=== PATIENT | female | born 1995 | race Caucasian/White ===

== ENCOUNTER 2020-03-08 15:11 | Emergency (ER) | payer BC ==
[2020-03-08 15:54] VITALS: BP 128/64; PULSE 82
[2020-03-08] MEDS ORDERED: methylPREDNISolone Sodium Succinate 125 MG/2 ML SDV IM ONE (15:59)
[2020-03-08] MEDS ORDERED: EPINEPHrine 1 MG/ML SDV IM ONE (15:59)
[2020-03-08] MEDS ORDERED: Famotidine 20 MG Tab PO ONE (16:00)
--- NOTE | 2020-03-08 16:01 | EDM.PDOC ---
ED HPI GENERAL MEDICAL PROBLEM - General Chief Complaint: Allergic Reaction Stated Complaint: FLY BITE, ALLERGIC, TROUBLE BREATHING Time Seen by Provider: 03/08/20 15:55 Source of Information: Reports: Patient, Family, RN Notes Reviewed History Limitations: Reports: No Limitations - History of Present Illness INITIAL COMMENTS - FREE TEXT/NARRATIVE: 24-year-old female presents emergency department today with allergic reaction, she has a known allergy to black fly bites unfortunately she had gotten bit again today used her EpiPen 2 times which did improve the symptoms of the throat swelling unfortunately she has no symptoms coming back no shortness of breath no rash Right Leg Pain Score (Numeric/FACES): 1 - Related Data Allergies Allergy/AdvReac Type Severity Reaction Status Date / Time cefprozil [From Cefzil] Allergy Hives Verified 03/08/20 15:47 Penicillins Allergy Hives Verified 03/08/20 15:47 black flies Allergy Anaphylactic Uncoded 03/06/16 17:00 Shock Home Meds: Home Meds Sertraline HCl [Zoloft] 100 mg PO DAILY 03/06/16 [History] lamoTRIgine [Lamotrigine] 100 mg PO DAILY 03/06/16 [History] Cetirizine [ZyrTEC] 10 mg PO DAILY 03/08/20 [History] Past Medical History Respiratory History: Reports: Asthma, Other (See Below) Other Respiratory History: activity induced asthma as a teenager Neurological History: Reports: Concussion Psychiatric History: Reports: Anxiety, Depression, Mood Swings - Past Surgical History HEENT Surgical History: Reports: Other (See Below) Social & Family History - Tobacco Use Smoking Status *Q: Current Every Day Smoker Years of Tobacco use: 4 Packs/Tins Daily: 0 - Caffeine Use Caffeine Use: Reports: Soda - Alcohol Use Days Per Week of Alcohol Use: 5 Number of Drinks Per Day: 1 Total Drinks Per Week: 5 - Recreational Drug Use Recreational Drug Use: No ED ROS ALLERGIC REACTION - Review of Systems Review Of Systems: See Below Constitutional: Reports: No Symptoms HEENT: Reports: Throat Pain, Throat Swelling Respiratory: Reports: No Symptoms Cardiovascular: Reports: No Symptoms GI/Abdominal: Reports: No Symptoms Skin: Reports: No Symptoms ED EXAM GENERAL NO PERIP PULSE - Physical Exam Exam: See Below Exam Limited By: No Limitations General Appearance: Alert, WD/WN, No Apparent Distress Throat/Mouth: Normal Inspection, Normal Lips, Normal Teeth, Normal Gums, Normal Oropharynx, Normal Voice, No Airway Compromise Neck: Normal Inspection, Supple, Non-Tender, Full Range of Motion Respiratory/Chest: No Respiratory Distress, Lungs Clear, Normal Breath Sounds, No Accessory Muscle Use, Chest Non-Tender Cardiovascular: Regular Rate, Rhythm, No Murmur Course - Vital Signs Last Recorded V/S: Last Vital Signs Temp 100.5 F 03/08/20 15:54 Pulse 82 03/08/20 15:54 Resp 16 03/08/20 15:54 BP 128/64 03/08/20 15:54 Pulse Ox 98 03/08/20 15:54 - Orders/Labs/Meds Meds: Medications Discontinued Medications Generic Name Dose Route Start Last Admin Trade Name Davisq PRN Reason Stop Dose Admin Epinephrine HCl 0.5 mg 03/08/20 15:59 03/08/20 16:10 Adrenalin IM 03/08/20 16:00 0.5 mg ONETIME ONE Administration Famotidine 20 mg 03/08/20 16:00 03/08/20 16:10 Pepcid PO 03/08/20 16:01 20 mg ONETIME ONE Administration Methylprednisolone Sodium Succinate 125 mg 03/08/20 15:59 03/08/20 16:11 Solu-Medrol IM 03/08/20 16:00 125 mg ONETIME ONE Administration Departure - Departure Time of Disposition: 16:44 Disposition: Home, Self-Care 01 Condition: Fair Clinical Impression: Allergic reaction to insect sting Qualifiers: Encounter type: initial encounter Injury intent: accidental or unintentional Qualified Code(s): T63.481A - Toxic effect of venom of other arthropod, accidental (unintentional), initial encounter - Discharge Information Instructions: Allergies, Adult, [id number] Referrals: PCP,None [Primary Care Provider] - Forms: ED Department Discharge Additional Instructions: Continues to use Benadryl as needed, refill your EpiPen please followup with your primary care provider in 3-5 days if not better, please call return to the emergency department with worsening of symptoms. Sepsis Event Note (ED) - Evaluation Sepsis Screening Result: No Definite Risk - Focused Exam Vital Signs: Vital Signs Temp Pulse Resp BP Pulse Ox 03/08/20 15:54 100.5 F 82 16 128/64 98 03/08/20 15:52 100.5 F 82 16 98 - Assessment/Plan Plan: Assessment Acuity = acute Site and laterality = allergic reaction Etiology = black fly Manifestations = none Location of injury = Home Lab values = none Plan EpiPen refilled, continue with Benadryl as needed for symptomatic relief, follow-up primary care 3 to 5 days if not better This note was dictated using [employer] voice recognition software please call with any questions on syntax or grammar.
== END 2020-03-08 16:51 | disposition home or self-care (01) ==
LOC: JP.ED 15:11
DX: T63.481A Toxic effect of venom of other arthropod, accidental (unintentional), initial encounter (principal); J45.909 Unspecified asthma, uncomplicated; F41.9 Anxiety disorder, unspecified; F32.9 Major depressive disorder, single episode, unspecified; F17.210 Nicotine dependence, cigarettes, uncomplicated; Z88.1 Allergy status to other antibiotic agents; Z88.0 Allergy status to penicillin; Z79.899 Other long term (current) drug therapy
CPT/HCPCS: 96372; 99283; A9270; J0171; J2930

== ENCOUNTER 2021-05-02 13:33 | Emergency (ER) | payer BC ==
--- NOTE | 2021-05-02 13:54 | EDM.PDOC ---
ED HPI GENERAL MEDICAL PROBLEM - General Chief Complaint: Bite:Animal, Insect Stated Complaint: allergic reaction to fly bite Time Seen by Provider: 05/02/21 13:47 Source of Information: Reports: Patient, Family, RN Notes Reviewed History Limitations: Reports: No Limitations - History of Present Illness INITIAL COMMENTS - FREE TEXT/NARRATIVE: 25-year-old female presents emergency department day with an allergic reaction, she has a known allergic reaction to black flies, was bit on the left lower leg started to feel her tongue swelled up had difficulty breathing coughing gave herself EpiPen x2, she states the most of her symptoms have resolved at this time. Also took 50 mg of Benadryl happened about 45 minutes prior tightness in chest Pain Score (Numeric/FACES): 2 - Related Data Allergies Allergy/AdvReac Type Severity Reaction Status Date / Time cefprozil [From Cefzil] Allergy Hives Verified 05/02/21 13:43 Penicillins Allergy Hives Verified 05/02/21 13:43 black flies Allergy Anaphylactic Uncoded 05/02/21 13:43 Shock Home Meds: Home Meds Sertraline HCl [Zoloft] 100 mg PO DAILY 03/06/16 [History] Cetirizine [ZyrTEC] 10 mg PO DAILY 03/08/20 [History] Topiramate [Trokendi Xr] 100 mg PO DAILY 05/02/21 [History] Past Medical History Respiratory History: Reports: Asthma, Other (See Below) Other Respiratory History: activity induced asthma as a teenager Neurological History: Reports: Concussion Psychiatric History: Reports: Anxiety, Depression, Mood Swings - Infectious Disease History Infectious Disease History: Reports: Novel Coronavirus - Past Surgical History HEENT Surgical History: Reports: Other (See Below) Other HEENT Surgeries/Procedures: wisdom teeth extracted Social & Family History - Caffeine Use Caffeine Use: Reports: Soda - Recreational Drug Use Recreational Drug Use: No ED ROS GENERAL - Review of Systems Review Of Systems: See Below Constitutional: Reports: No Symptoms HEENT: Reports: Throat Pain, Throat Swelling Respiratory: Reports: Shortness of Breath, Cough Cardiovascular: Reports: Dyspnea on Exertion GI/Abdominal: Reports: No Symptoms ED EXAM, ANIMAL BITE - Physical Exam Exam: See Below Text/Narrative:: I cannot appreciate any bite yojana on the integument system no rash Exam Limited By: No Limitations General Appearance: Alert, WD/WN, No Apparent Distress Throat/Mouth: Normal Inspection, Normal Lips, Normal Teeth, Normal Gums, Normal Oropharynx, Normal Voice, No Airway Compromise Respiratory/Chest: No Respiratory Distress, Lungs Clear, Normal Breath Sounds, No Accessory Muscle Use, Chest Non-Tender Cardiovascular: Regular Rate, Rhythm, No Murmur GI/Abdominal: Soft, Non-Tender Course - Vital Signs Last Recorded V/S: Last Vital Signs Temp 97.8 F 05/02/21 13:41 Pulse 110 H 05/02/21 14:59 Resp 20 05/02/21 14:59 BP 98/55 L 05/02/21 14:59 Pulse Ox 99 05/02/21 14:59 - Orders/Labs/Meds Orders: Active Orders 24 hr Category Date Time Status Peripheral IV Care [RC] . DIRECTED Care 05/02/21 15:22 Active Sodium Chloride 0.9% [Saline Flush] Med 05/02/21 15:22 Active 10 ml FLUSH ASDIRECTED PRN Peripheral IV Insertion Adult [OM.PC] Urgent Oth 05/02/21 15:22 Ordered Medication Orders Sodium Chloride (Sodium Chloride 0.9% 10 Ml Syringe) 10 ml FLUSH ASDIRECTED PRN PRN Reason: Keep Vein Open Last Admin: 05/02/21 15:48 Dose: 10 ml Documented by: JOSEPH Meds: Medications Generic Name Dose Route Start Last Admin Trade Name Freq PRN Reason Stop Dose Admin Sodium Chloride 10 ml 05/02/21 15:22 05/02/21 15:48 Sodium Chloride 0.9% 10 Ml Syringe FLUSH 10 ml ASDIRECTED PRN Administration Keep Vein Open Discontinued Medications Generic Name Dose Route Start Last Admin Trade Name Freq PRN Reason Stop Dose Admin Epinephrine HCl 0.5 mg 05/02/21 15:22 05/02/21 15:25 Epinephrine 1 Mg/Ml Sdv IM 05/02/21 15:23 0.5 mg ONETIME ONE Administration Famotidine 40 mg 05/02/21 15:22 05/02/21 15:44 Famotidine 20 Mg/2 Ml Sdv IVPUSH 05/02/21 15:23 40 mg ONETIME ONE Administration Lorazepam 1 mg 05/02/21 14:49 05/02/21 14:56 Lorazepam 2 Mg/Ml Sdv IM 05/02/21 14:50 1 mg ONETIME ONE Administration Methylprednisolone Sodium Succinate 125 mg 05/02/21 15:22 05/02/21 15:36 Methylprednisolone Sodium Succinate 125 Mg/2 Ml Sdv IV 05/02/21 15:23 125 mg ONETIME ONE Administration Departure - Departure Time of Disposition: 17:37 Disposition: Home, Self-Care 01 Condition: Fair Clinical Impression: Allergic reaction Qualifiers: Encounter type: initial encounter Qualified Code(s): T78.40XA - Allergy, unspecified, initial encounter - Discharge Information Instructions: Insect Bite, Adult, [id number] Referrals: PCP,None [Primary Care Provider] - Forms: ED Department Discharge Additional Instructions: Use your EpiPen as needed, please followup with your primary care provider in 3-5 days if not better, please call return to the emergency department with worsening of symptoms. Sepsis Event Note (ED) - Evaluation Sepsis Screening Result: No Definite Risk - Focused Exam Vital Signs: Vital Signs Temp Pulse Resp BP Pulse Ox 05/02/21 14:59 110 H 20 98/55 L 99 05/02/21 14:10 112 H 22 H 144/85 H 99 05/02/21 13:41 97.8 F 110 H 26 H 144/85 H 99 - My Orders Last 24 Hours: My Active Orders 05/02/21 15:22 Peripheral IV Care [RC] . DIRECTED Sodium Chloride 0.9% [Saline Flush] 10 ml FLUSH ASDIRECTED PRN Peripheral IV Insertion Adult [OM.PC] Urgent - Assessment/Plan Last 24 Hours: My Active Orders 05/02/21 15:22 Peripheral IV Care [RC] . DIRECTED Sodium Chloride 0.9% [Saline Flush] 10 ml FLUSH ASDIRECTED PRN Peripheral IV Insertion Adult [OM.PC] Urgent Plan: Assessment Acuity = acute Site and laterality = allergic reaction Etiology = black fly Manifestations = none Location of injury = Home Lab values = none Plan Good improvement with, epinephrine, Ativan, Solu-Medrol, Pepcid prescription written for EpiPen 1 IM/subcu times 1 repeat 5 minutes to pack follow-up primary care as needed This note was dictated using [employer] voice recognition software please call with any questions on syntax or grammar.
[2021-05-02] MEDS ORDERED: LORazepam 2 MG/ML SDV IM ONE (14:49)
[2021-05-02 15:01] VITALS: BP 98/55; PULSE 110
[2021-05-02] MEDS ORDERED: Sodium Chloride 0.9% 10 ML Syringe FLUSH PRN (15:22)
[2021-05-02] MEDS ORDERED: methylPREDNISolone Sodium Succinate 125 MG/2 ML SDV IV ONE (15:22)
[2021-05-02] MEDS ORDERED: EPINEPHrine 1 MG/ML SDV IM ONE (15:22)
[2021-05-02] MEDS ORDERED: Famotidine 20 MG/2 ML SDV IVPUSH ONE (15:22)
== END 2021-05-02 17:49 | disposition home or self-care (01) ==
LOC: JP.ED 13:33
DX: T78.40XA Allergy, unspecified, initial encounter (principal); J45.909 Unspecified asthma, uncomplicated; Z79.899 Other long term (current) drug therapy; Z88.1 Allergy status to other antibiotic agents; Z88.0 Allergy status to penicillin
CPT/HCPCS: 96372; 96374; 96375; 99284; J0171; J2060; J2930; J3490